=== PATIENT | female | born 1990 | race Caucasian/White ===

== ENCOUNTER 2018-05-17 14:10 | Outpatient (CLI) | payer OTHER ==
--- NOTE | 2018-05-17 16:02 | XRAY Report ---
Reason: LAC W/FOREIGN BODY Procedure Date: 05/17/2018 Accession Number: [id number] / [id number] Procedure: XR - Hand 3 View RT CPT Code: FULL RESULT: EXAM: RIGHT HAND RADIOGRAPHY. EXAM DATE: 05/17/2018 02:48 PM. CLINICAL HISTORY: Laceration with foreign body. COMPARISON: None. TECHNIQUE: 3 views. FINDINGS: Bones: Normal. No fractures or bone lesions. Joints: Normal. No subluxations. Soft Tissues: Known laceration is not well seen. No radiopaque foreign body is identified. IMPRESSION: No radiopaque foreign body is identified. RADIA
== END 2018-05-17 14:11 | disposition home or self-care (01) ==
LOC: DI 14:10
PROVIDERS: ATTEND Specialist
DX: S61.421A Laceration with foreign body of right hand, initial encounter (principal)

== ENCOUNTER 2018-12-20 15:52 | Outpatient (CLI) | payer MEDICAID ==
[2018-12-21 11:26] LABS: HEPATITIS B SURFACE ANTIGEN NON-REACTIVE (NON-REACTIVE)
[2018-12-21 11:36] LABS: HEPATITIS C ANTIBODY NON-REACTIVE (NON-REACTIVE)
[2018-12-21 13:16] LABS: HIV AG/AB 4TH GEN NON-REACTIVE (NON-REACTIVE)
== END 2018-12-20 15:53 | disposition home or self-care (01) ==
LOC: LAB 15:52
PROVIDERS: ATTEND Obstetrics & Gynecology
DX: Z01.419 Encounter for gynecological examination (general) (routine) without abnormal findings (principal)
CPT/HCPCS: 36415; 81599; 86592; 86803; 87340; 87389

== ENCOUNTER 2019-01-02 08:00 | Outpatient (CLI) | payer MEDICAID ==
[2019-01-02 21:31] LABS: TRICHOMONAS VAGINALIS DNA NEGATIVE (NEGATIVE)
[2019-01-02 22:12] LABS: CANDIDA GROUP DNA NEGATIVE (NEGATIVE); CANDIDA KRUSEI DNA NEGATIVE (NEGATIVE); TRICHOMONAS VAGINALIS DNA NEGATIVE (NEGATIVE)
== END 2019-01-02 23:59 | disposition home or self-care (01) ==
LOC: LAB.R 08:00
PROVIDERS: ATTEND Obstetrics & Gynecology
DX: Z20.2 Contact with and (suspected) exposure to infections with a predominantly sexual mode of transmission (principal)
CPT/HCPCS: 87491; 87591; 87661; 87801

== ENCOUNTER 2019-01-02 13:54 | Outpatient (CLI) | payer MEDICAID ==
[2019-01-02 15:18] LABS: FOLLICLE STIMULATING HORMONE 7.63 mIU/mL
[2019-01-03 07:12] LABS: PROGESTERONE 0.7 ng/mL
== END 2019-01-02 13:55 | disposition home or self-care (01) ==
LOC: LAB 13:54
PROVIDERS: ATTEND Obstetrics & Gynecology
DX: N91.2 Amenorrhea, unspecified (principal); Z20.2 Contact with and (suspected) exposure to infections with a predominantly sexual mode of transmission
CPT/HCPCS: 36415; 82670; 83001; 84144; 84443; 84702; 87491; 87591; 87661; 87801

== ENCOUNTER 2020-03-17 12:38 | Emergency (ER) | payer MEDICAID ==
--- NOTE | 2020-03-17 13:02 | ED Physician Documentation ---
PD HPI NVD - Stated complaint Stated Complaint: NAUSEA,DIZZY,LIGHTHEADED - Chief complaint Chief Complaint: Abd Pain - History obtained from History obtained from: Patient - History of Present Illness Timing - onset: How many days ago (6) Timing - duration: Days (6) Timing - details: Gradual onset, Intermittant (noting feeling lightheaded when stands up. Also nausea regularly. Worse when stands up. No noted vertigo per se. No URI symptoms.) Associated symptoms: Abdominal pain (nausea and some discomfort (not really pain per se) in upper abd, worse when feeling nauseated.), Loss of appetite (but still drinking fluids and eating moderately.). No: Fever, Near syncope / syncope Contributing factors: No: Sick contact, Bad food, Diabetes Improved by: Laying still Worsened by: Eating, Position (nausea and lightheaded when stands up, lasting about 3-4 seconds. Then feels okay once up and around.) Similar symptoms before: Has not had sx before Recently seen: Not recently seen Review of Systems Constitutional: denies: Fever, Chills Ears: denies: Ear pain Nose: denies: Rhinorrhea / runny nose, Congestion Throat: denies: Sore throat Cardiac: denies: Chest pain / pressure, Palpitations Respiratory: denies: Cough GI: reports: Abdominal Pain, Nausea. denies: Vomiting, Constipation, Diarrhea, Bloody / black stool : denies: Dysuria PD PAST MEDICAL HISTORY - Past Medical History Cardiovascular: None Respiratory: None Neuro: None Endocrine/Autoimmune: None GI: None - Present Medications Home Medications: Ambulatory Orders Medication Instructions Recorded Confirmed Famotidine [Pepcid] 20 mg PO DAILY #20 tablet 03/17/20 Mag Hydrox/Aluminum Hyd/Simeth 10 ml PO Q6H PRN #240 ml 03/17/20 [Mylanta Maximum Strength Liq] Ondansetron Odt [Zofran] 4 mg TL Q6H PRN #15 tablet 03/17/20 - Allergies Allergies/Adverse Reactions: Allergies Allergy/AdvReac Type Severity Reaction Status Date / Time acetaminophen [From Percocet] AdvReac Nausea Verified 03/17/20 12:48 loratadine AdvReac Unknown Verified 03/17/20 12:48 oxycodone [From Percocet] AdvReac Nausea Verified 11/22/20 12:48 PD ED PE NORMAL - Vitals Vital signs reviewed: Yes - General General: Alert and oriented X 3, No acute distress, Well developed/nourished - HEENT HEENT: PERRL, EOMI (no nystagmus), Ears normal, Moist mucous membranes, Pharynx benign - Neck Neck: Supple, no meningeal sign, No adenopathy - Cardiac Cardiac: RRR, No murmur - Respiratory Respiratory: Clear bilaterally - Abdomen Abdomen: Normal bowel sounds, Soft, Non distended, No organomegaly, Other (mild tenderness in epigastric area without guarding nor percussion tenderness. ) - Female Female : Deferred - Back Back: No CVA TTP - Derm Derm: Normal color, Warm and dry - Extremities Extremities: Normal ROM s pain, No edema, No calf tenderness / cord - Neuro Neuro: Alert and oriented X 3, No motor deficit, Normal speech Results - Vitals Vitals: Vital Signs - 24 hr 03/17/20 03/17/20 03/17/20 12:48 13:10 13:19 Temperature 36.8 C 36.8 C Heart Rate 82 82 Heart Rate [ 76 Sitting] Heart Rate [ 98 Standing] Heart Rate [ 72 Supine] Respiratory 18 18 Rate Blood Pressure 112/72 112/72 Blood Pressure 116/83 H [Sitting] Blood Pressure 122/91 H [Standing] Blood Pressure 123/74 [Supine] O2 Saturation 98 98 03/17/20 15:26 Temperature 36.8 C Heart Rate 76 Heart Rate [ Sitting] Heart Rate [ Standing] Heart Rate [ Supine] Respiratory 20 Rate Blood Pressure 119/90 H Blood Pressure [Sitting] Blood Pressure [Standing] Blood Pressure [Supine] O2 Saturation 100 Oxygen O2 Source Room air - Labs Labs: Laboratory Tests 03/17/20 03/17/20 03/17/20 13:00 13:00 14:24 WBC 6.9 RBC 4.37 Hgb 14.2 Hct 42.5 MCV 97.3 MCH 32.5 H MCHC 33.4 RDW 12.2 Plt Count 252 MPV 10.1 Neut # (Auto) 4.2 Lymph # (Auto) 2.0 [place] # (Auto) 0.5 Eos # (Auto) 0.1 Baso # (Auto) 0.0 Absolute Nucleated RBC 0.00 Nucleated RBC % 0.0 Sodium 140 Potassium 3.8 Chloride 100 L Carbon Dioxide 26 Anion Gap 14.0 H BUN 10 Creatinine 0.9 Estimated GFR (MDRD) 74 L Glucose 90 Calcium 9.6 Total Bilirubin 0.7 AST 22 ALT 33 Alkaline Phosphatase 57 Total Protein 7.6 Albumin 4.6 Globulin 3.0 Albumin/Globulin Ratio 1.5 Lipase 25 Urine Color YELLOW Urine Clarity CLEAR Urine pH 7.0 Ur Specific [place] 1.015 Urine Protein NEGATIVE Urine Glucose (UA) NEGATIVE Urine Ketones NEGATIVE Urine Occult Blood NEGATIVE Urine Nitrite NEGATIVE Urine Bilirubin NEGATIVE Urine Urobilinogen 0.2 (NORMAL) Ur Leukocyte Esterase NEGATIVE Ur Microscopic Review NOT INDICATED Urine Culture Comments NOT INDICATED Urine HCG, Qual NEGATIVE PD MEDICAL DECISION MAKING - ED course Complexity details: reviewed results (does not have vertigo description. Seems lightheaded with standing, not with head movement alone. Normal vitals and posturals. Labs normal. ), considered differential (feeling lightheaded and nausea with getting up, no vertigo and no symptoms with just head movement alone. Has also had upper abd mild discomfort with eating, and nausea. Presume gastritis. Labs are okay. ), d/w patient Departure - Departure Disposition: 01 Home, Self Care Clinical Impression: Nausea Gastritis Qualifiers: Gastritis type: unspecified gastritis Chronicity: acute Gastritis bleeding: without bleeding Qualified Code(s): K29.00 - Acute gastritis without bleeding Condition: Stable Record reviewed to determine appropriate education?: Yes Instructions: ED Gastritis, ED Nausea Vomiting Prescriptions: Mag Hydrox/Aluminum Hyd/Simeth [Mylanta Maximum Strength Liq] 10 ml PO Q6H PRN #240 ml PRN Reason: Abdominal Pain Famotidine [Pepcid] 20 mg PO DAILY #20 tablet Ondansetron Odt [Zofran] 4 mg TL Q6H PRN #15 tablet PRN Reason: Nausea / Vomiting Comments: Your basic blood tests are normal including blood count, blood sugar, electrolytes, kidney function. Your urine test is negative and negative test. At this point I would presume you have an irritated stomach (gastritis) and we will treat this with ondansetron as needed for nausea and antacids as well to help with stomach upset. Famotidine acid reducing medicine daily for a week or 2. Recheck if not improved well over the next several days and return if worsening or follow-up with your primary care if just persistent beyond a week. Forms: Activity restrictions Discharge Date/Time: 03/17/20 15:27
[2020-03-17 13:16] LABS: BASOPHILS % (AUTO) 0.6 %; EOSINOPHILS # (AUTO) 0.1 10^3/uL (0.0-0.7); HGB - HEMOGLOBIN 14.2 g/dL (12.0-16.0); LYMPHOCYTES % (AUTO) 29.4 %; MEAN CORPUSCULAR HEMOGLOBIN 32.5 pg (27.0-31.0); MEAN CORPUSCULAR HGB CONC 33.4 g/dL (32.0-36.0); MEAN CORPUSCULAR VOLUME 97.3 fL (81.0-99.0); MEAN PLATELET VOLUME 10.1 fL (7.9-10.8); MONOCYTES # (AUTO) 0.5 10^3/uL (0.0-1.0); MONOCYTES % (AUTO) 6.9 %; NEUTROPHILS # (AUTO) 4.2 10^3/uL (1.5-6.6); NEUTROPHILS % (AUTO) 60.8 %; PLT - PLATELET COUNT 252 10^3/uL (130-450); RED BLOOD COUNT 4.37 10^6/uL (4.20-5.40); RED CELL DISTRIBUTION WIDTH 12.2 % (12.0-15.0); WHITE BLOOD COUNT 6.9 x10^3/uL (4.8-10.8)
[2020-03-17] MEDS ORDERED: FAMOTIDINE 20 MG/2 ML VIAL IVP STA (13:19)
[2020-03-17] MEDS ORDERED: MAG HYDROX/AL HYDROX/SIMETH 30 ML UDC PO STA (13:19)
[2020-03-17] MEDS ORDERED: SODIUM CHLORIDE 0.9% 1,000 ML IV STA (13:19)
[2020-03-17] MEDS ORDERED: ONDANSETRON 4 MG/2 ML VIAL IVP STA (13:19)
[2020-03-17 13:30] LABS: ALBUMIN 4.6 g/dL (3.2-5.5); ALBUMIN/GLOBULIN RATIO 1.5 (1.0-2.2); BILIRUBIN,TOTAL 0.7 mg/dL (0.2-1.0); CALCIUM 9.6 mg/dL (8.5-10.3); CREATININE 0.9 mg/dL (0.4-1.0); TOTAL PROTEIN 7.6 g/dL (6.7-8.2)
[2020-03-17 14:36] LABS: BILIRUBIN,URINE NEGATIVE (NEGATIVE); GLUCOSE, URINE (UA) NEGATIVE (NEGATIVE); KETONES,URINE (UA) NEGATIVE (NEGATIVE); LEUKOCYTE ESTERASE, URINE NEGATIVE (NEGATIVE); NITRITE,URINE NEGATIVE (NEGATIVE); OCCULT BLOOD,URINE NEGATIVE (NEGATIVE); PROTEIN,URINE NEGATIVE (NEGATIVE); UROBILINOGEN,URINE 0.2 (NORMAL) E.U./dL (NORMAL)
[2020-03-17 14:39] LABS: CLARITY,URINE CLEAR (CLEAR); HCG UR QUAL NEGATIVE
[2020-03-17 15:27] VITALS: BP 119/90
== END 2020-03-17 15:27 | disposition home or self-care (01) ==
LOC: ED 12:38
DX: K29.00 Acute gastritis without bleeding (principal)
CPT/HCPCS: 36415; 80053; 81003; 81025; 83690; 85025; 96361; 96374; 96375; 99283; 99284; A9270; 81001; 87086

== ENCOUNTER 2020-03-20 17:48 | Emergency (ER) | payer MEDICAID ==
[2020-03-20] MEDS ORDERED: SODIUM CHLORIDE 0.9% 1,000 ML IV STA (18:16)
[2020-03-20 18:39] LABS: BASOPHILS % (AUTO) 0.5 %; EOSINOPHILS # (AUTO) 0.1 10^3/uL (0.0-0.7); EOSINOPHILS % (AUTO) 1.5 %; LYMPHOCYTES # (AUTO) 2.4 10^3/uL (1.5-3.5); LYMPHOCYTES % (AUTO) 28.6 %; MEAN CORPUSCULAR HGB CONC 33.8 g/dL (32.0-36.0); MEAN CORPUSCULAR VOLUME 97.6 fL (81.0-99.0); MEAN PLATELET VOLUME 10.2 fL (7.9-10.8); MONOCYTES # (AUTO) 0.6 10^3/uL (0.0-1.0); MONOCYTES % (AUTO) 7.5 %; NEUTROPHILS # (AUTO) 5.1 10^3/uL (1.5-6.6); NEUTROPHILS % (AUTO) 61.5 %; PLT - PLATELET COUNT 252 10^3/uL (130-450); RED BLOOD COUNT 4.24 10^6/uL (4.20-5.40); RED CELL DISTRIBUTION WIDTH 12.2 % (12.0-15.0); WHITE BLOOD COUNT 8.3 x10^3/uL (4.8-10.8)
--- NOTE | 2020-03-20 18:44 | ED Physician Documentation ---
History of Present Illness - Stated complaint Stated Complaint: NAUSEA, DIZZY - Chief complaint Chief Complaint: General - History obtained from History obtained from: Patient - Additonal information Additional information: 29-year-old female returns to the emergency department for evaluation of persistent dizziness and nausea. She was seen here 3 days ago for similar. At that time the work-up was suspected to likely be a gastritis and she was discharged with Pepcid and Zofran. However since then patient endorses that she has been persistently dizzy. She finds that she has the sensation of the room spinning and it lasts usually 5 to 15 seconds. It is worse when she goes from a positioning of sitting to standing or laying. Sometimes worse with head movement. She has had no vomiting. No diarrhea or abdominal pain. She denies chest pain or shortness of breath. She has no history of previous vertigo. She denies any recent illness, congestion or head injury. She has had no focal ne uro deficits, arm or leg weakness. She has not had any fainting episodes. When she is dizzy she denies a sensation of palpitations or a racing heart. she has had no tinnitus or hearing loss Review of Systems Constitutional: reports: Reviewed and negative Eyes: denies: Loss of vision, Photophobia Ears: denies: Loss of hearing, Ear pain, Tinnitus/ringing Nose: denies: Rhinorrhea / runny nose, Congestion Throat: reports: Reviewed and negative Cardiac: denies: Chest pain / pressure, Palpitations, Pedal edema, Calf pain Respiratory: denies: Dyspnea, Cough GI: reports: Nausea. denies: Vomiting : denies: Dysuria, Frequency, Hesitancy Skin: reports: Reviewed and negative Musculoskeletal: reports: Reviewed and negative Neurologic: reports: Near syncope, Other (positional dizziness). denies: Focal weakness, Numbness, Difficulty speaking, Syncope, Seizure, Confused, Headache Endocrine: denies: Polydypsia, Polyuria, Polyphagia PD PAST MEDICAL HISTORY - Past Medical History Cardiovascular: None Respiratory: None Neuro: None Endocrine/Autoimmune: None GI: None - Past Surgical History Past Surgical History: No - Present Medications Home Medications: Ambulatory Orders Medication Instructions Recorded Confirmed Famotidine [Pepcid] 20 mg PO DAILY #20 tablet 03/17/20 Mag Hydrox/Aluminum Hyd/Simeth 10 ml PO Q6H PRN #240 ml 03/17/20 [Mylanta Maximum Strength Liq] Ondansetron Odt [Zofran] 4 mg TL Q6H PRN #15 tablet 03/17/20 Prochlorperazine [Compazine] 5 mg PO Q6H PRN #20 tablet 03/20/20 - Allergies Allergies/Adverse Reactions: Allergies Allergy/AdvReac Type Severity Reaction Status Date / Time loratadine AdvReac Unknown Verified 03/20/20 18:02 oxycodone [From Percocet] AdvReac Nausea Verified 03/20/20 18:02 - Social History Does the pt smoke?: No Smoking Status: Never smoker Does the pt drink ETOH?: No Does the pt have substance abuse?: No - Immunizations Immunizations are current?: Yes - POLST Patient has POLST: No PD ED PE EXPANDED - General General: Alert, No acute distress, Well developed/nourished - HEENT HEENT: Atraumatic, PERRL, EOMI, Ears normal, Moist mucous membranes, Pharynx normal - Eyes Eyes: PERRL, Normal accommodation, Abnormal accommodation, EOMI - Neck Neck: Supple w/out meningeal sx, No tenderness - Cardiac Cardiac: Regular Rate, Regular Rhythm, Radial strong equal, Cap refill < 2 sec. No: Murmur Present - Respiratory Respiratory: Clear to ausultation elsy. No: Distress, Labored - Abdomen Abdomen: Normal Bowel sounds. No: Tender to palpation - Extremities Extremities: Normal. No: Pedal edema bilateral, Right calf TTP/cord, Left calf TTP/cord - Neuro Neuro: Alert and Oriented X 3, Normal motor (Unable to produce dizziness with the Hoffman-Hallpike at bedside. Patient did report brief dizziness when she went from a laying to sitting position and again from sitting to standing position. Each episode lasted about 5 seconds), Normal Sensation, Normal Speech, CNII-XII intact, Cerebellar nl, Normal gait, Normal finger nose, Normal speech, Other. No: Nystagmus - GCS Eye Opening: Spontaneous Motor: Obeys Commands Verbal: Oriented Total: 15 Results - Vitals Vitals: Vital Signs - 24 hr 03/20/20 03/20/20 17:56 19:03 Temperature 36.8 C Heart Rate 79 Heart Rate [ 76 Sitting] Heart Rate [ 88 Standing] Heart Rate [ 70 Supine] Respiratory 18 Rate Blood Pressure 122/75 Blood Pressure 121/79 [Sitting] Blood Pressure 125/90 H [Standing] Blood Pressure 108/77 [Supine] O2 Saturation 100 Oxygen O2 Source Room air - EKG (time done) 1851 Rate: Rate (enter#) (72) Rhythm: NSR [place]: Normal Intervals: Normal ID QRS: Normal Ischemia: Normal ST segments Compare to prior EKG: Old EKG unavailable Computer interpretation: Agree with computer - Labs Labs: Laboratory Tests 03/20/20 03/20/20 03/20/20 18:35 18:35 18:35 WBC 8.3 RBC 4.24 Hgb 14.0 Hct 41.4 MCV 97.6 MCH 33.0 H MCHC 33.8 RDW 12.2 Plt Count 252 MPV 10.2 Neut # (Auto) 5.1 Lymph # (Auto) 2.4 [place] # (Auto) 0.6 Eos # (Auto) 0.1 Baso # (Auto) 0.0 Absolute Nucleated RBC 0.00 Nucleated RBC % 0.0 Sodium 138 Potassium 3.8 Chloride 103 Carbon Dioxide 27 Anion Gap 8.0 BUN 11 Creatinine 1.0 Estimated GFR (MDRD) 66 L Glucose 83 Calcium 9.6 Total Bilirubin 0.4 AST 18 ALT 27 Alkaline Phosphatase 64 Troponin I High Sens Total Protein 8.0 Albumin 4.7 Globulin 3.3 Albumin/Globulin Ratio 1.4 Lipase 49 HCG, Quant < 0.60 03/20/20 18:35 WBC RBC Hgb Hct MCV MCH MCHC RDW Plt Count MPV Neut # (Auto) Lymph # (Auto) [place] # (Auto) Eos # (Auto) Baso # (Auto) Absolute Nucleated RBC Nucleated RBC % Sodium Potassium Chloride Carbon Dioxide Anion Gap BUN Creatinine Estimated GFR (MDRD) Glucose Calcium Total Bilirubin AST ALT Alkaline Phosphatase Troponin I High Sens < 2.3 L Total Protein Albumin Globulin Albumin/Globulin Ratio Lipase HCG, Quant - Rads (name of study) CXR Radiology: Final report received (No acute cardiopulmonary process) PD MEDICAL DECISION MAKING - ED course Complexity details: reviewed results, re-evaluated patient, considered differential, d/w patient ED course: 29-year-old female presents to the emergency department with recurrent intermittent vertigo. She reports that she has a sensation of the room spinning when she goes from lying, to sitting or standing. The sensation lasts 5 to 15 seconds. She has not had any syncope or chest pain. On exam in the room today I could not elicit the dizziness utilizing the Nnamdi-Hallpike but she certainly was dizzy when she changed positions in bed. My suspicion for a central etiology is exceedingly low given her normal cerebellar exam and otherwise unremarkable past medical history. An EKG was performed out of an abundance of caution and shows no ischemic findings. High- sensitivity troponin is negative. Chest x-ray unremarkable for age. No cardiomegaly or acute focal findings. Patient's blood count and electrolytes were repeated today and are again unremarkable. She is not . On exam she had no abdominal pain. Therefore abdominal imaging was deferred. She was given 1 L of crystalloid as well as Compazine here in the emergency department. She had marked relief of the nausea following the Compazine. Patient had no orthostatic vital sign changes on exam. Given her history and exam findings I am still mostly suspicious that the vertigo is a peripheral etiology. I have recommended her to do the half somersault exercises at home. I will write a prescription for Compazine to help with the nausea at home. She is advised close follow-up with her primary care provider. If the positional vertigo is not improving she may benefit from physical therapy or further referral. Emergent return precautions were discussed Departure - Departure Disposition: 01 Home, Self Care Clinical Impression: Vertigo Condition: Stable Record reviewed to determine appropriate education?: Yes Instructions: ED Vertigo Unspecified Follow-Up: Shivani Rodriguez PA [Primary Care Provider] - Prescriptions: Prochlorperazine [Compazine] 5 mg PO Q6H PRN #20 tablet PRN Reason: Nausea / Vomiting Comments: I hope that you are feeling better soon. The chest x-ray and EKG are all normal. Your vital signs were normal even with position changes. As we discussed I do think that the cause of your dizziness is coming from an inner ear and is positional in nature. I would like you to practice the half somersault exercises at home twice daily. Most often this type of dizziness will resolve on its own without any treatment after a few days to a few weeks. I think it is important that you follow-up with your primary care provider. If not improving referral to physical therapy can be helpful. Please return to the emergency department if you develop chest pain, have fainting episodes, have slurred speech or are unable to walk normally.
[2020-03-20] MEDS ORDERED: PROCHLORPERAZINE 10 MG/2 ML VIAL IVP STA (18:45)
[2020-03-20 18:52] LABS: ALBUMIN 4.7 g/dL (3.2-5.5); ALBUMIN/GLOBULIN RATIO 1.4 (1.0-2.2); BILIRUBIN,TOTAL 0.4 mg/dL (0.2-1.0); CALCIUM 9.6 mg/dL (8.5-10.3)
[2020-03-20 19:05] VITALS: BP 108/77
--- NOTE | 2020-03-20 19:31 | XRAY Report ---
PROCEDURE: Chest 1 View X-Ray INDICATIONS: chest pain TECHNIQUE: One view of the chest was acquired. COMPARISON: None. FINDINGS: Surgical changes and devices: None. Lungs and pleura: No pleural effusions or pneumothorax. Lungs are clear. Mediastinum: Mediastinal contours appear normal. Heart size is normal. Bones and chest wall: No suspicious bony lesions. Overlying soft tissues appear unremarkable. IMPRESSION: No acute cardiopulmonary abnormality. Reviewed by: Abdirahman Vargas MD on 03/20/2020 7:30 PM [facility] Approved by: Abdirahman Vargas MD on 03/20/2020 7:30 PM PST Station ID: [id number]
== END 2020-03-20 19:55 | disposition home or self-care (01) ==
LOC: ED 17:48
DX: H81.10 Benign paroxysmal vertigo, unspecified ear (principal); R11.0 Nausea
CPT/HCPCS: 36415; 71045; 80053; 83690; 84484; 84702; 85025; 93005; 96361; 96374; 99284

== ENCOUNTER 2020-04-03 15:49 | Outpatient (CLI) | payer MEDICAID ==
--- NOTE | 2020-04-03 16:53 | XRAY Report ---
PROCEDURE: Lumbar Spine Complete INDICATIONS: LOW BACK PAIN TECHNIQUE: 4 views of the lumbar spine were acquired. COMPARISON: None. FINDINGS: Bones: 5 [id number] vertebrae are present. There is mild grade 1 retrolisthesis of L3 on L4 an d L4 on L5. No vertebral body compression fractures. No suspicious bony lesions. Soft tissues: Overlying bowel gas pattern is normal. No suspicious soft tissue calcifications. IMPRESSION: No acute fracture. No osseous lesion. If symptoms and/or clinical suspicion for pathology continue, f urther assessment with repeat plain films, or advanced imaging (e.g., CT, MRI, or bone scan) is recom mended for further assessment. Reviewed by: Coretta Mcfarlane MD on 04/03/2020 4:52 PM PST Approved by: Coretta Mcfarlane MD on 04/03/2020 4:52 PM PST Station ID: [id number]
--- NOTE | 2020-04-03 17:02 | XRAY Report ---
PROCEDURE: Cervical Spine w/Flex/Ext INDICATIONS: CERVICAL DISC DISORDER TECHNIQUE: 7 views of the cervical spine were acquired. COMPARISON: None. FINDINGS: No fracture. Scattered multilevel endplate spurring and diffuse facet arthropathy. Cervical disc spac es appear grossly preserved. No evidence of abnormal motion with dynamic flexion and extension latera l views to suggest instability. No bony foraminal stenoses Soft tissues: Prevertebral soft tissues are normal in thickness. IMPRESSION: Normal examination. No evidence of abnormal motion with dynamic flexion and extension la teral views to suggest instability. No bony foraminal stenoses. Reviewed by: Tanner Radford MD on 04/03/2020 5:00 PM PST Approved by: Tanner Radford MD on 04/03/2020 5:00 PM PST Station ID: [id number]
== END 2020-04-03 15:50 | disposition home or self-care (01) ==
LOC: LAB 15:49 → DI 15:50
PROVIDERS: ATTEND Family Medicine
DX: M50.10 Cervical disc disorder with radiculopathy, unspecified cervical region (principal); M54.5 Low back pain
CPT/HCPCS: 36415; 85651; 86038; 86140

== ENCOUNTER 2020-04-17 08:00 | Outpatient (CLI) | payer MEDICAID ==
[2020-04-20 11:22] LABS: ANA SCREEN NEGATIVE (NEGATIVE)
== END 2020-04-17 23:59 | disposition home or self-care (01) ==
LOC: LAB.WCP 08:00
PROVIDERS: ATTEND Family Medicine
DX: M50.10 Cervical disc disorder with radiculopathy, unspecified cervical region (principal); M54.5 Low back pain
CPT/HCPCS: 36415; 86038

== ENCOUNTER 2020-05-16 16:55 | Outpatient (CLI) | payer MEDICAID ==
--- NOTE | 2020-05-17 09:42 | MRI Report ---
PROCEDURE: Cervical Spine W/O INDICATIONS: cervical disc disorder w/radiculopthy TECHNIQUE: Noncontrast sagittal T1 spin echo and T2 fast spin echo, sagittal STIR, foraminal oblique sagittal T2 fast spin echo, and axial gradient echo or T2 fast spin echo through the cervical spine. COMPARISON: Plain films dated 04/03/2020 FINDINGS: Image quality: Excellent. Alignment and Curvature: There is loss of normal cervical lordosis, as well as mild grade 1 retrolis thesis of C5 on C6. Alignment is otherwise normal. Bone Marrow: Marrow demonstrates normal overall signal. Spinal Cord: Visualized spinal cord has normal size and signal. No cerebellar tonsillar herniation. Paraspinous Soft Tissues: No paravertebral masses. There is a high T2 intensity focus within the lef t posterior thyroid measuring 13 mm. Prevertebral soft tissues are normal in thickness. C2-C3: Normal in appearance. C3-C4: Mild disc desiccation. No significant canal, nor foraminal stenosis. C4-C5: Mild disc desiccation and diffuse disc bulge. Mild canal stenosis. No foraminal stenosis. C5-C6: Mild disc desiccation and diffuse disc bulge. Mild facet and uncovertebral hypertrophy bilate rally. Mild canal stenosis. No foraminal stenosis. C6-C7: Mild disc desiccation and diffuse disc bulge. Mild bilateral facet and uncovertebral hypertro phy. Mild canal stenosis. No foraminal stenosis. C7-T1: Normal in appearance. IMPRESSION: 1. Multilevel degenerative disc and facet disease, as well as uncovertebral hypertrophy, causing mild canal and foraminal stenoses. No neural impingement. 2. No cord signal abnormalities. 3. Left thyroid mass; initial further assessment with ultrasound is recommended. Reviewed by: Coretta Mcfarlane MD on 05/17/2020 9:41 AM PST Approved by: Coretta Mcfarlane MD on 05/17/2020 9:41 AM PST Station ID: [id number]
== END 2020-05-16 16:56 | disposition home or self-care (01) ==
LOC: DI 16:55
PROVIDERS: ATTEND Family Medicine
DX: M50.121 Cervical disc disorder at C4-C5 level with radiculopathy (principal); M48.02 Spinal stenosis, cervical region; R20.0 Anesthesia of skin; E07.89 Other specified disorders of thyroid

== ENCOUNTER 2020-06-26 15:46 | Outpatient (CLI) | payer MEDICAID ==
--- NOTE | 2020-06-26 17:18 | Ultrasound Report ---
PROCEDURE: Head or Neck Soft Tissue INDICATIONS: NECK MASS TECHNIQUE: Real-time scanning was performed of the thyroid gland, with image documentation. COMPARISON: None FINDINGS: Right: Thyroid lobe measures 4.6 x 1.2 x 1.3 cm, and is homogeneous in echotexture. Left: Thyroid lobe measures 5.0 x 1.6 x 1.6 cm, and is homogenous in echotexture. Isthmus: 3 mm thick. Nodule number: One Location: mid left lobe Size: 1.2 x 1.3 x 1.6 cm. Composition: Predominant solid Echogenicity: Hypoechoic Shape: wider than tall. Margins: Irregular Echogenic foci: None Total points: 4 ACR TI-RADS category: Moderately suspicious Right parotid lymph node measuring 9 mm incidentally noted, technically nonspecific although could be monitored for long-term stability with ultrasound as clinically warranted. IMPRESSION: Solitary mid left thyroid nodule. Recommend ultrasound guided FNA. ACR TI-RADS definitions and recommendations: TI-RADS 1 (benign): 0 points. FNA not needed. TI-RADS 2 (not suspicious): 2 points. FNA not needed. TI-RADS 3 (mildly suspicious): 3 points. ? FNA if 2.5 cm or larger, follow up if 1.5 cm or larger (at 1, 3, and 5 years). TI-RADS 4 (moderately suspicious): 4-6 points. ? FNA if 1.5 cm or larger, follow up if 1 cm or larger (at 1, 2, 3, and 5 years). TI-RADS 5 (highly suspicious): 7 points or more. ? FNA if 1 cm or larger, follow up if 0.5 cm or larger (every year for 5 years). Reviewed by: Tanner Radford MD on 06/26/2020 5:16 PM PST Approved by: Tanner Radford MD on 06/26/2020 5:16 PM PST Station ID: [id number]
== END 2020-06-26 15:47 | disposition home or self-care (01) ==
LOC: DI 15:46
PROVIDERS: ATTEND Family Medicine
DX: E04.1 Nontoxic single thyroid nodule (principal)

== ENCOUNTER 2020-07-03 08:00 | Outpatient (CLI) | payer MEDICAID ==
[2020-07-03 13:02] LABS: THYROID STIMULATING HORMONE 3.54 uIU/mL (0.34-5.60)
[2020-07-03 13:03] LABS: FREE T3 2.83 pg/mL (2.5-3.9)
[2020-07-03 13:04] LABS: FREE T4 (FREE THYROXINE) 0.81 ng/dL (0.58-1.64)
== END 2020-07-03 23:59 | disposition home or self-care (01) ==
LOC: LAB.WCP 08:00
PROVIDERS: ATTEND Internal Medicine
DX: E04.1 Nontoxic single thyroid nodule (principal)
CPT/HCPCS: 36415; 84439; 84443; 84481

== ENCOUNTER 2020-10-15 08:00 | Outpatient (CLI) | payer MEDICAID ==
[2020-10-15 17:48] LABS: BASOPHILS # (AUTO) 0.1 10^3/uL (0.0-0.1); BASOPHILS % (AUTO) 0.7 %; EOSINOPHILS # (AUTO) 0.5 10^3/uL (0.0-0.7); HCT - HEMATOCRIT 42.1 % (37.0-47.0); LYMPHOCYTES # (AUTO) 2.2 10^3/uL (1.5-3.5); LYMPHOCYTES % (AUTO) 28.6 %; MEAN CORPUSCULAR HEMOGLOBIN 32.5 pg (27.0-31.0); MEAN CORPUSCULAR HGB CONC 33.3 g/dL (32.0-36.0); MEAN CORPUSCULAR VOLUME 97.7 fL (81.0-99.0); MEAN PLATELET VOLUME 10.5 fL (7.9-10.8); MONOCYTES # (AUTO) 0.6 10^3/uL (0.0-1.0); MONOCYTES % (AUTO) 7.3 %; NEUTROPHILS # (AUTO) 4.3 10^3/uL (1.5-6.6); PLT - PLATELET COUNT 269 10^3/uL (130-450); RED BLOOD COUNT 4.31 10^6/uL (4.20-5.40); RED CELL DISTRIBUTION WIDTH 12.6 % (12.0-15.0); WHITE BLOOD COUNT 7.7 x10^3/uL (4.8-10.8)
[2020-10-15 18:13] LABS: ALBUMIN 4.4 g/dL (3.2-5.5); ALBUMIN/GLOBULIN RATIO 1.4 (1.0-2.2); BILIRUBIN,TOTAL 0.3 mg/dL (0.2-1.0); CALCIUM 9.3 mg/dL (8.5-10.3); CREATININE 0.9 mg/dL (0.4-1.0); MAGNESIUM 2.1 mg/dL (1.7-2.8); POTASSIUM 4.1 mmol/L (3.5-5.0); TOTAL PROTEIN 7.5 g/dL (6.7-8.2)
[2020-10-15 18:35] LABS: HCG,QUALITATIVE BLOOD NEGATIVE
== END 2020-10-15 23:59 | disposition home or self-care (01) ==
LOC: LAB.WCP 08:00
PROVIDERS: ATTEND Family Medicine
DX: R55 Syncope and collapse (principal)
CPT/HCPCS: 36415; 80053; 83735; 84703; 85025

== ENCOUNTER 2021-11-02 17:23 | Emergency (ER) | payer MEDICAID ==
--- NOTE | 2021-11-02 18:01 | ED Physician Documentation ---
History of Present Illness - Stated complaint Stated Complaint: RT ABD PX - Chief complaint Chief Complaint: Abd Pain - Additonal information Additional information: 31-year-old female presents emergency department for evaluation of right-sided abdominal pain. She points to her flank and states that pain began last night suddenly when she was at work. She had some nausea but no vomiting. Denies any urinary symptoms. No history of similar. She states that she has had anorexia for much of the last 24 hours. Past surgical history is most significant for tubal ligation. Denies any changes in her bowel habits. Review of Systems Constitutional: denies: Fever, Chills Nose: reports: Reviewed and negative Throat: reports: Reviewed and negative Cardiac: reports: Reviewed and negative Respiratory: reports: Reviewed and negative GI: reports: Abdominal Pain, Nausea. denies: Vomiting, Constipation, Diarrhea : reports: Reviewed and negative Skin: reports: Reviewed and negative Musculoskeletal: reports: Reviewed and negative PD PAST MEDICAL HISTORY - Past Medical History Cardiovascular: None Respiratory: None Neuro: None Endocrine/Autoimmune: None GI: None [employer]SEM[employer] OVER MACHINE: None : None HEENT: None Psych: None Musculoskeletal: None Derm: None - Past Surgical History Past Surgical History: No - Present Medications Home Medications: Ambulatory Orders Medication Instructions Recorded Confirmed Meloxicam [Mobic] 7.5 mg PO DAILY PRN 11/02/21 11/02/21 Midodrine [ProAmatine] 2.5 mg PO BID 11/02/21 11/02/21 Nortriptyline [Pamelor] 30 mg PO HS 11/02/21 11/02/21 - Allergies Allergies/Adverse Reactions: Allergies Allergy/AdvReac Type Severity Reaction Status Date / Time tea tree Allergy Hives Verified 11/02/21 17:30 tree nut Allergy Anaphylaxis Verified 11/02/21 17:30 loratadine AdvReac Unknown Verified 03/20/20 18:02 oxycodone [From Percocet] AdvReac Nausea Verified 03/20/20 18:02 - Social History Does the pt smoke?: No Smoking Status: Never smoker Does the pt drink ETOH?: No Does the pt have substance abuse?: No - Immunizations Immunizations are current?: Yes - POLST Patient has POLST: No PD ED PE NORMAL - General General: Alert and oriented X 3, No acute distress, Well developed/nourished - HEENT HEENT: Atraumatic, Moist mucous membranes - Neck Neck: Supple, no meningeal sign, No adenopathy - Cardiac Cardiac: RRR, No murmur - Respiratory Respiratory: No respiratory distress, Clear bilaterally - Abdomen Abdomen: Normal bowel sounds, Soft. No: Non tender (tenderness right flank. no guarding/rebound) - Back Back: No CVA TTP, No spinal TTP - Derm Derm: Normal color, Warm and dry, No rash - Extremities Extremities: No deformity, No tenderness to palpate, Normal ROM s pain - Neuro Neuro: Alert and oriented X 3, front services agent 2-12 intact Eye Opening: Spontaneous Motor: Obeys Commands Verbal: Oriented GCS Score: 15 - Psych Psych: Normal mood Results - Vitals Vitals: Vital Signs - 24 hr 11/02/21 17:26 Temperature 36.3 C L Heart Rate 113 H Respiratory 16 Rate Blood Pressure 121/75 O2 Saturation 99 Oxygen O2 Source Room air - Labs Labs: Laboratory Tests 11/02/21 11/02/21 11/02/21 17:52 18:06 18:48 WBC 5.8 RBC 4.09 L Hgb 13.4 Hct 39.4 MCV 96.3 MCH 32.8 H MCHC 34.0 RDW 11.9 L Plt Count 277 MPV 10.5 Neut # (Auto) 3.3 Lymph # (Auto) 1.8 [place] # (Auto) 0.5 Eos # (Auto) 0.2 Baso # (Auto) 0.0 Absolute Nucleated RBC 0.00 Nucleated RBC % 0.0 Sodium 138 Potassium 4.3 Chloride 101 Carbon Dioxide 30 Anion Gap 7.0 BUN 10 Creatinine 0.9 Estimated GFR (MDRD) 73 L Glucose 96 Calcium 9.9 Total Bilirubin 0.6 AST 16 ALT 20 Alkaline Phosphatase 64 Total Protein 7.3 Albumin 4.4 Globulin 2.9 Albumin/Globulin Ratio 1.5 Lipase 29 Urine Color YELLOW Urine Clarity CLEAR Urine pH 8.0 H Ur Specific [place] 1.010 Urine Protein NEGATIVE Urine Glucose (UA) NEGATIVE Urine Ketones NEGATIVE Urine Occult Blood NEGATIVE Urine Nitrite NEGATIVE Urine Bilirubin NEGATIVE Urine Urobilinogen 0.2 (NORMAL) Ur Leukocyte Esterase NEGATIVE Ur Microscopic Review NOT INDICATED Urine Culture Comments NOT INDICATED Urine HCG, Qual NEGATIVE - Rads (name of study) CT abd Radiology: Final report received (No renal stone or hydronephrosis. Appendix is normal.) PD MEDICAL DECISION MAKING - ED course Complexity details: reviewed results, re-evaluated patient, considered differential, d/w patient, d/w family ED course: Well-appearing 31-year-old female presents emergency department for evaluation of acute right sided abdominal pain that began yesterday evening. She had some nausea but no vomiting. No fevers or urinary symptoms. Her screening labs are essentially unremarkable. On exam she had nonfocal tenderness on the right flank. No CVA tenderness no guarding or rebound. Subsequent CT scan was also negative With no findings of acute hydronephrosis renal colic or appendicitis. On repeat exam she is free of abdominal pain. Findings were discussed with the patient she is reassured and is stable on discharge home. Recommended follow-up with PCP. Emergent worrisome return precautions were discussed. Departure - Departure Disposition: , Self Care Clinical Impression: Right-sided abdominal pain of unknown cause Condition: Stable Record reviewed to determine appropriate education?: Yes Instructions: ED Abdominal Pain Cause Unkn Fem Ch Comments: You are seen today in the emergency department for pain on the right side of your abdomen. We did do screening labs including blood count, electrolytes and urine. No findings of infection or abnormality. We also did a CT of your abdomen. The radiologist interprets your CT as normal. I do question if there may be a very tiny stone in your lower right ureter though it is too small to cause any symptoms of significance. In general I recommend that you take Tylenol or ibuprofen for discomfort. Discussed this ED visit with your primary care provider. If at any point you find that your symptoms are worsening, you have fevers, uncontrolled vomiting or bloody stools then please return immediately to the ER for a second evaluation
[2021-11-02 18:07] LABS: BILIRUBIN,URINE NEGATIVE (NEGATIVE); GLUCOSE, URINE (UA) NEGATIVE (NEGATIVE); KETONES,URINE (UA) NEGATIVE (NEGATIVE); LEUKOCYTE ESTERASE, URINE NEGATIVE (NEGATIVE); NITRITE,URINE NEGATIVE (NEGATIVE); OCCULT BLOOD,URINE NEGATIVE (NEGATIVE); PROTEIN,URINE NEGATIVE (NEGATIVE); UROBILINOGEN,URINE 0.2 (NORMAL) E.U./dL (NORMAL)
[2021-11-02 18:08] LABS: CLARITY,URINE CLEAR (CLEAR); HCG UR QUAL NEGATIVE
[2021-11-02 18:23] LABS: BASOPHILS % (AUTO) 0.5 %; EOSINOPHILS # (AUTO) 0.2 10^3/uL (0.0-0.7); EOSINOPHILS % (AUTO) 2.6 %; HCT - HEMATOCRIT 39.4 % (37.0-47.0); HGB - HEMOGLOBIN 13.4 g/dL (12.0-16.0); LYMPHOCYTES # (AUTO) 1.8 10^3/uL (1.5-3.5); LYMPHOCYTES % (AUTO) 31.6 %; MEAN CORPUSCULAR HEMOGLOBIN 32.8 pg (27.0-31.0); MEAN CORPUSCULAR VOLUME 96.3 fL (81.0-99.0); MEAN PLATELET VOLUME 10.5 fL (7.9-10.8); MONOCYTES # (AUTO) 0.5 10^3/uL (0.0-1.0); MONOCYTES % (AUTO) 8.6 %; NEUTROPHILS # (AUTO) 3.3 10^3/uL (1.5-6.6); NEUTROPHILS % (AUTO) 56.5 %; PLT - PLATELET COUNT 277 10^3/uL (130-450); RED BLOOD COUNT 4.09 10^6/uL (4.20-5.40); RED CELL DISTRIBUTION WIDTH 11.9 % (12.0-15.0); WHITE BLOOD COUNT 5.8 x10^3/uL (4.8-10.8)
[2021-11-02 19:06] LABS: ALBUMIN 4.4 g/dL (3.2-5.5); ALBUMIN/GLOBULIN RATIO 1.5 (1.0-2.2); BILIRUBIN,TOTAL 0.6 mg/dL (0.2-1.0); CALCIUM 9.9 mg/dL (8.5-10.3); CREATININE 0.9 mg/dL (0.4-1.0); POTASSIUM 4.3 mmol/L (3.5-5.0); TOTAL PROTEIN 7.3 g/dL (6.7-8.2)
--- NOTE | 2021-11-02 19:12 | CT Report ---
PROCEDURE: Abdomen/Pelvis WO INDICATIONS: right flank/rlq pain TECHNIQUE: Noncontrast 5 mm thick sections acquired from the diaphragms to the symphysis. 5 mm coronal and sagi ttal reformats were then performed. For radiation dose reduction, the following was used: automated exposure control, adjustment of mA and/or kV according to patient size. COMPARISON: None. FINDINGS: Image quality: Excellent. ABDOMEN: Lung bases: Lung bases are clear. Heart size is normal. Solid organs: Liver and spleen are normal in size. Gallbladder is within normal limits Pancreas is normal in contours. No adrenal nodules. Kidneys are normal in size, without hydronephrosis or neph rolithiasis. Peritoneum and bowel: Unenhanced bowel loops demonstrate normal wall thickness and caliber. No free fluid or air. The appendix is normal. Nodes and vessels: No retroperitoneal or mesenteric adenopathy by size criteria. Aorta and inferior vena cava are normal in caliber. Miscellaneous: No ventral hernias. PELVIS: Genitourinary: Bladder wall thickness is normal. Miscellaneous: No inguinal hernias or adenopathy. Bones: No suspicious bony lesions. No vertebral body compression fractures. IMPRESSION: 1. No renal stone or hydronephrosis. 2. Appendix is normal. Reviewed by: Carolyne Sargent MD, PhD on 11/02/2021 7:11 PM PDT Approved by: Carolyne Sargent MD, PhD on 11/02/2021 7:11 PM PDT Station ID: [id number]
[2021-11-02 19:42] VITALS: BP 118/74
== END 2021-11-02 19:42 | disposition home or self-care (01) ==
LOC: ED 17:23
DX: R10.9 Unspecified abdominal pain (principal)
CPT/HCPCS: 36415; 80053; 81001; 81003; 81025; 83690; 85025; 87086; 99282; 99284